=== PATIENT | female | born 1965 | race Caucasian/White ===

== ENCOUNTER → 2018-03-30 13:34 | Outpatient (REF) | payer BC, SELFPAY ==
[2018-03-30 18:48] LABS: Bilirubin Negative (Negative); Blood Small (Negative); Clarity Clear; Glucose Negative (Negative); Ketones Negative (Negative); Leukocyte Esterase Small (Negative); Nitrite Negative (Negative); Urobilinogen 0.2 EU/dL (Up TO 0.2)
[2018-03-30 18:59] LABS: Bacteria Few HPF (Negative); C & S Indicated? Yes; Casts Negative LPF (Negative); Crystals Negative HPF (Negative); Epithelial Cells Few HPF (Negative); Mucus Negative (Negative); Other Cells Few Renal (Negative); RBC 0-2 (0-2); WBC 20-50 HPF (0-5)
== END ==
LOC: NCHCN 13:34
PROVIDERS: PCP Nurse Practitioner Family; Visit Provider Family Medicine
DX: R39.15 Urgency of urination (principal); R10.9 Unspecified abdominal pain
CPT/HCPCS: 87077; 81003; 81015; 87086; 87186

== ENCOUNTER 2018-12-13 09:29 | Outpatient (CLI) | payer BC, SELFPAY ==
[2018-12-13 10:19] LABS: Abs Immature Grans 0.01 k/cumm (0.0-0.09); Absolute Basophil Count 0.01 k/cumm (0.0-0.2); Absolute Eosinophil Count 0.22 k/cumm (0.0-0.7); Absolute Lymphocyte Count 1.41 k/cumm (1.2-3.4); Absolute Monocyte Count 0.53 k/cumm (0.11-0.7); Absolute Neutrophil Count 3.63 k/cumm (1.2-6.7); Basophils % 0.2; Eosinophils % 3.8; HGB 13.3 g/dL (12.0-15.5); Immature Grans % 0.2; Lymphocytes % 24.3; Mean Corp. HGB Concentration 33.3 g/dL (32.0-36.0); Mean Corpuscular Hemoglobin 29.7 pg (27.0-33.0); Mean Corpuscular Volume 89.3 fL (80-95); Mean Platelet Volume 9.8 fL (8.0-11.0); Monocytes % 9.1; Neutrophils % 62.4; Platelet Count 229 x1000/uL (130-400); RBC 4.48 m/cumm (4.00-5.20); RBC Distribution Width 12.8 % (11.7-14.6); White Blood Cell Count 5.81 k/cumm (4.4-10.8)
[2018-12-13 15:48] LABS: Vitamin D 25 Total 16.3 ng/ml (30-100)
[2018-12-13 17:19] LABS: Progesterone <0.2 ng/ml
[2018-12-14 10:14] LABS: FSH 76.5 mIU/ml
[2018-12-15 18:29] LABS: Estradiol, Mass Spectrometry 36 pg/mL; Estrone 41 pg/mL
== END 2018-12-13 09:49 ==
PROVIDERS: PCP Nurse Practitioner Family; Visit Provider Naturopath
DX: R05 Cough (principal); Z78.0 Asymptomatic menopausal state; E55.9 Vitamin D deficiency, unspecified
CPT/HCPCS: 36415; 82306; 82670; 82679; 83001; 83002; 84144; 85025

== ENCOUNTER 2019-07-18 01:20 | Outpatient (CLI) | payer BC, SELFPAY ==
--- NOTE | 2019-07-18 08:49 | DI.MAMMO_ITS ---
EXAM: MG MAMMO SCREENING CLINICAL HISTORY: SCREENING, PREVENTATIVE CARE EXAM, Z00.00 TECHNIQUE: Mammograms were interpreted according to the usual protocol including computer analysis w [employer] CAD system, tomosynthesis and C-view imaging. COMPARISON: January 2018 FINDINGS: The breasts are heterogeneously dense. No dominant mass or clumped microcalcification identified in either breast. Current examination is compared with previous examinations including January 2018 and ere has been no gross interval change in appearance in comparison with previous studies. IMPRESSION: No specific evidence of malignancy at this time. Routine screening examinations are suggested at yea rly intervals in this age group according to the ACS/ACR guidelines. Category 1, breast density categ ory C. BI-RADS Cat 1 - Negative Breast Density - Category C - Heterogeneously dense
== END 2019-07-18 01:40 ==
PROVIDERS: PCP Student in an Organized Health Care Education/Training Program; Visit Provider Nurse Practitioner Family
DX: Z00.00 Encounter for general adult medical examination without abnormal findings (principal); Z12.31 Encounter for screening mammogram for malignant neoplasm of breast
CPT/HCPCS: 77063; 77067

== ENCOUNTER 2020-01-25 03:15 | Outpatient (CLI) | payer BC, SELFPAY ==
[2020-01-25 08:12] LABS: Absolute Basophil Count 0.01 k/cumm (0.0-0.2); Absolute Eosinophil Count 0.18 k/cumm (0.0-0.7); Absolute Lymphocyte Count 1.27 k/cumm (1.2-3.4); Absolute Monocyte Count 0.43 k/cumm (0.11-0.7); Absolute Neutrophil Count 2.46 k/cumm (1.2-6.7); Basophils % 0.2; Eosinophils % 4.1; HCT 41.4 % (36.0-46.0); HGB 14.1 g/dL (12.0-15.5); Lymphocytes % 29.2; Mean Corp. HGB Concentration 34.1 g/dL (32.0-36.0); Mean Corpuscular Hemoglobin 30.2 pg (27.0-33.0); Mean Corpuscular Volume 88.7 fL (80-95); Mean Platelet Volume 9.9 fL (8.0-11.0); Monocytes % 9.9; Neutrophils % 56.6; Platelet Count 214 x1000/uL (130-400); RBC 4.67 m/cumm (4.00-5.20); RBC Distribution Width 12.4 % (11.7-14.6); White Blood Cell Count 4.35 k/cumm (4.4-10.8)
[2020-01-25 08:49] LABS: Hemoglobin A1C 5.6 % (3.8-5.6)
[2020-01-25 09:51] LABS: ALT 128 U/L (14-59); AST 60 U/L (15-37); Alkaline Phosphatase 82 U/L (46-116); Anion Gap 8.8 mmol/L (3-11); BUN 8 mg/dL (7-18); Bilirubin, Total 0.4 mg/dL (0.2-1.0); CO2 26.2 mmol/L (21.0-32.0); CREATININE 0.69 mg/dL (0.55-1.02); Calculated LDL 136 mg/dL (<100); Chloride 108 mmol/L (98-107); Cholesterol 206 mg/dL (<200); Ferritin 129 ng/mL (8-252); Glucose 98 mg/dL (74-106); HDL Cholesterol 48 mg/dL (40-60); Magnesium 2.1 mg/dL (1.8-2.4); Potassium 4.3 mmol/L (3.5-5.1); Sodium 143 mmol/L (136-145); TSH 1.46 uIU/mL (0.36-3.74); Total Protein 6.9 g/dL (6.4-8.2); Triglyceride 113 mg/dL (<150)
[2020-01-25 09:55] LABS: Folate > 20.0 ng/mL (8.6-20.0); Vitamin B12 820 pg/mL (193-986)
[2020-01-25 10:12] LABS: FREE T4 1.11 ng/dL (0.76-1.46)
[2020-01-25 16:29] LABS: T3,Free 3.7 pg/mL (2.8-5.3)
[2020-01-25 16:43] LABS: T3, Total 131 ng/dL (97-169)
[2020-01-25 17:38] LABS: Progesterone 0.3 ng/mL (See Table)
[2020-01-28 06:27] LABS: Vitamin D 25 Total 61.3 ng/ml (30-100)
[2020-01-28 11:10] LABS: FSH 107.3 mIU/mL (See Note)
[2020-01-28 11:37] LABS: LH 32.1 mIU/mL (See Note)
[2020-01-28 12:09] LABS: Homocysteine 10.3 umol/L (5.0-13.9)
[2020-01-29 08:23] LABS: 25-Hydroxy D Total 69 ng/mL; 25-Hydroxy D2 <4.0 ng/mL; 25-Hydroxy D3 69 ng/mL
[2020-01-29 13:29] LABS: Estradiol, Mass Spectrometry <10 pg/mL; Estrone 28 pg/mL
== END 2020-01-25 03:35 ==
PROVIDERS: PCP Student in an Organized Health Care Education/Training Program; Visit Provider Naturopath
DX: R73.01 Impaired fasting glucose (principal); R53.83 Other fatigue; F41.9 Anxiety disorder, unspecified; E78.5 Hyperlipidemia, unspecified; E55.9 Vitamin D deficiency, unspecified; N92.6 Irregular menstruation, unspecified
CPT/HCPCS: 36415; 80053; 80061; 82306; 83090; 83519; 82607; 82670; 82679; 82728; 82746; 83001; 83002; 83036; 83735; 84144; 84439; 84443; 84480; 84481; 85025

== ENCOUNTER 2020-02-07 14:41 | Outpatient (CLI) | payer BC, SELFPAY ==
[2020-02-07 17:57] LABS: ALT 132 U/L (14-59); AST 49 U/L (15-37); Albumin 3.8 g/dL (3.4-5.0); Alkaline Phosphatase 133 U/L (46-116); Bilirubin, Direct 0.11 mg/dL (0.00-0.20); Bilirubin, Total 0.3 mg/dL (0.2-1.0); Total Protein 6.7 g/dL (6.4-8.2)
== END 2020-02-07 15:01 ==
PROVIDERS: PCP Student in an Organized Health Care Education/Training Program; Visit Provider Naturopath
DX: R74.8 Abnormal levels of other serum enzymes (principal)
CPT/HCPCS: 36415; 80076

== ENCOUNTER 2020-02-13 01:41 | Outpatient (CLI) | payer BC, SELFPAY ==
--- NOTE | 2020-02-13 | DI.US_ITS ---
EXAM: US ABDOMEN INDICATION: ABNL LFT'S,R94.5,? LIVER DISEASE COMPARISON: No exams were available for comparison TECHNIQUE: Ultrasound abdomen performed using standard protocol FINDINGS: Abdominal ultrasound was performed according to the usual protocol. The liver is normal in size and shape. No focal hepatic lesion seen. There is no evidence of cholelithiasis or biliary dilatation. No gallbladder wall thickening or peric holecystic fluid collection. Pancreas appears intact as visualized. Spleen is unremarkable in appearance with no focal lesion. Kidneys are normal in size and shape. No renal mass, hydronephrosis, or nephrolithiasis. Abdominal aorta and IVC are of normal diameter. IMPRESSION: Negative abdominal ultrasound .
== END 2020-02-13 02:01 ==
PROVIDERS: PCP Nurse Practitioner Family; Visit Provider Naturopath
DX: R94.5 Abnormal results of liver function studies (principal)
CPT/HCPCS: 76700

== ENCOUNTER 2020-02-13 02:38 | Outpatient (CLI) | payer BC, SELFPAY ==
[2020-02-13 16:52] LABS: Alkaline Phosphatase 146 U/L (46-116); Amylase 48 U/L (25-115); Lipase 139 U/L (73-393)
[2020-02-14 10:14] LABS: Hepatitis A Antibody IgM Negative (Negative); Hepatitis B Core Antibody Negative (Negative); Hepatitis B surface Ag Negative (Negative); Hepatitis C Ab w Rflx HCV PCR Negative (Negative)
== END 2020-02-13 02:58 ==
PROVIDERS: PCP Nurse Practitioner Family; Visit Provider Naturopath
DX: R94.5 Abnormal results of liver function studies (principal)
CPT/HCPCS: 36415; 83690; 86704; 86709; 86803; 87340; 82150; 84075

== ENCOUNTER 2020-03-31 02:41 | Outpatient (CLI) | payer BC, SELFPAY ==
[2020-03-31 09:26] LABS: Abs Immature Grans 0.02 10^3/uL (0.0-0.06); Absolute Basophil Count 0.02 10^3/uL (0.0-0.2); Absolute Eosinophil Count 0.17 10^3/uL (0.0-0.7); Absolute Lymphocyte Count 1.36 10^3/uL (1.2-3.4); Absolute Monocyte Count 0.39 10^3/uL (0.1-0.8); Absolute Neutrophil Count 3.29 10^3/uL (1.2-6.7); Basophils % 0.4; Eosinophils % 3.2; HCT 42.2 % (36.0-46.0); HGB 13.9 g/dL (11.2-15.7); Immature Grans % 0.4; Lymphocytes % 25.9; MCH 29.5 pg (27.0-33.0); MCHC 32.9 % (32.0-36.0); MCV 89.6 fL (80-95); MPV 9.9 fL (8.0-11.0); Monocytes % 7.4; Neutrophils % 62.7; Nucleated RBC 0 %; Platelet Count 230 10^3/uL (130-400); RBC 4.71 10^6/uL (3.93-5.22); RDW 12.6 % (11.7-14.6); RDW-SD 41.5 fL; WBC 5.25 10^3/uL (4.4-10.8)
[2020-03-31 09:28] LABS: Prothrombin Time 9.9 sec (9.3-11.0)
[2020-03-31 10:17] LABS: GGT 88 U/L (5-55)
[2020-03-31 10:27] LABS: ALT 51 U/L (14-59); AST 23 U/L (15-37); Albumin 3.8 g/dL (3.4-5.0); Alkaline Phosphatase 67 U/L (46-116); Anion Gap 9.3 mmol/L (3-11); BUN 14 mg/dL (7-18); Bilirubin, Total 0.4 mg/dL (0.2-1.0); CO2 28.7 mmol/L (21.0-32.0); CREATININE 0.75 mg/dL (0.55-1.02); Calcium 9.3 mg/dL (8.5-10.1); Chloride 108 mmol/L (98-107); Glucose 99 mg/dL (74-106); Potassium 4.3 mmol/L (3.5-5.1); Sodium 146 mmol/L (136-145); Total Protein 6.6 g/dL (6.4-8.2)
[2020-03-31 10:30] LABS: LDH 138 U/L (81-234)
[2020-04-01 09:18] LABS: IgA 169 mg/dL (85-499); IgG 647 mg/dL (610-1,616); IgM 120 mg/dL (35-242)
[2020-04-01 14:39] LABS: ANA Interpretation Negative (Negative)
[2020-04-01 16:28] LABS: Ceruloplasmin 25.6 mg/dL
[2020-04-01 22:23] LABS: Tissue Transglutaminase Ab IgA <1.2 U/mL
[2020-04-01 22:49] LABS: Mitochondrial Ab, M2 <0.1 U
[2020-04-02 10:18] LABS: AFP Tumor Marker 6.9 ng/mL (<8.1)
[2020-04-02 12:42] LABS: Smooth Muscle Ab Screen Negative (Negative)
[2020-04-03 16:31] LABS: Alpha-1-Antitrypsin 109 mg/dL (100 - 190); Alpha-1-Antitrypsin Phenotype MS bands
== END 2020-03-31 03:01 ==
PROVIDERS: Family Provider Naturopath; PCP Naturopath; Visit Provider Physician Assistant Medical
DX: R74.8 Abnormal levels of other serum enzymes (principal); R94.5 Abnormal results of liver function studies
CPT/HCPCS: 36415; 80053; 82390; 82784; 83516; 82103; 82104; 82105; 82977; 83615; 85025; 85610; 86038; 86255

== ENCOUNTER 2020-10-27 11:50 | Outpatient (REF) | payer BC, SELFPAY ==
[2020-10-28 14:11] LABS: COVID-19 RT-PCR UVMMC Result Negative (Negative)
== END 2020-10-27 11:51 | disposition home or self-care (01) ==
LOC: NCHCN 11:50
PROVIDERS: PCP Naturopath; Visit Provider Nurse Practitioner Family
DX: Z20.822 Contact with and (suspected) exposure to COVID-19 (principal); J06.9 Acute upper respiratory infection, unspecified
CPT/HCPCS: U0003

== ENCOUNTER 2021-04-01 08:24 | Outpatient (REF) | payer BC, MEDICAID, SELFPAY ==
[2021-04-01 21:02] LABS: HGB 14.2 g/dL (11.2-15.7); MCH 29.8 pg (27.0-33.0); MCV 90.1 fL (80-95); MPV 10.5 fL (8.0-11.0); Platelet Count 230 10^3/uL (130-400); RBC 4.77 10^6/uL (3.93-5.22); RDW 11.9 % (11.7-14.6); RDW-SD 39.5 fL; WBC 5.09 10^3/uL (4.4-10.8)
[2021-04-01 21:32] LABS: ALT 36 U/L (14-59); AST 22 U/L (15-37); Alkaline Phosphatase 60 U/L (46-116); Bilirubin, Total 0.4 mg/dL (0.2-1.0); Calculated LDL 167 mg/dL (<100); Cholesterol 253 mg/dL (<200); Glucose 107 mg/dL (74-106); HDL Cholesterol 54 mg/dL (40-60); Total Protein 6.9 g/dL (6.4-8.2); Triglyceride 162 mg/dL (<150)
[2021-04-01 21:52] LABS: Bilirubin, Direct 0.1 mg/dL (0.0-0.2)
== END 2021-04-01 08:25 | disposition home or self-care (01) ==
LOC: NCHCN 08:24
PROVIDERS: PCP Naturopath; Visit Provider Nurse Practitioner Family
DX: Z00.00 Encounter for general adult medical examination without abnormal findings (principal); R79.89 Other specified abnormal findings of blood chemistry; Z13.220 Encounter for screening for lipoid disorders
CPT/HCPCS: 80061; 80076; 82947; 85027

== ENCOUNTER 2021-04-29 15:38 | Outpatient (REF) | payer MEDICAID, SELFPAY ==
--- NOTE | 2021-04-29 15:00 | ENDOMET_PTH ---
PATIENT: Hollie Zaldivar LOC: [facility] U#:[id number] AGE/SX: 55/F ROOM: RE04/29/[address]: Deborah Becerra : 1965 BED: DIS: 04/29/2021 SPEC #: [id number] RECD: 04/29/21 18:24 STATUS: QUENTIN REQ #: [id number] PADMINI: 04/29/21 15:[address]: Deborah Becerra DEPT: Surgical Specimen RECD BY: Lexus Connor ENTERED: 04/29/21 18:25 SP TYPE: Endomet OTHR DR: Denia Fsoter Tissues: 1 - ENDOMETRIUM BX/BELLA Procedures: GROSS AND MICRO LEVEL 4 Comments: [id number]
== END 2021-04-29 15:39 | disposition home or self-care (01) ==
LOC: LBN 15:38
PROVIDERS: PCP Naturopath; Visit Provider Obstetrics & Gynecology Gynecology
DX: N84.0 Polyp of corpus uteri (principal); N85.8 Other specified noninflammatory disorders of uterus; N92.4 Excessive bleeding in the premenopausal period
CPT/HCPCS: 88305

== ENCOUNTER 2021-09-18 01:39 | Outpatient (CLI) | payer MEDICAID, SELFPAY ==
--- NOTE | 2021-09-18 14:47 | DI.MAMMO_ITS ---
Exam(s) MAMMO SCREENING EXAM: MAMMO SCREENING CLINICAL HISTORY: SCREENING FOR BREAST CANCER Z12.39 TECHNIQUE: Bilateral full field digital CC and MLO mammographic images were obtained with 3D tomosyn thesis and utilizing computer aided detection (CAD). COMPARISON: Available for comparison. FINDINGS: Masses/Architectural Distortion: None seen. Microcalcifications: No suspicious pleomorphic-type are seen. Skin Thickening/Nipple Retraction: None. IMPRESSION: 1. No significant interval change with no specific features of malignancy noted. 2. Unless there is more urgent need, screening mammography is recommended, as per [employer] guidelines. BI-RADS Category 1 - Negative Breast Density - Category C - Heterogeneously dense Breast density category C or D implies that the patient has dense breast tissue. Dense breast tissue is very common and is not abnormal but dense breast tissue can make it harder to find cancer on a ma mmogram. Also, dense breast tissue may increase their breast cancer risk. This information about the result of the mammogram report was provided to the patient to raise their awareness. Use this report when you speak with the patient about their risks for breast cancer, which includes their family hist ory. At that time, you may recommend for more screening tests (Ultrasound or MRI) as they might be us eful based on their risk. A negative radiographic report should not delay biopsy if a dominant or clinically suspicious mass is present. Up to ten percent of cancers are not identified on mammography. A negative report may reinforce clinical impression. Adenosis and dense breasts may obscure an underlying neoplasm. False positive reports average 6 to 10%. Patient will receive a letter notifying them of these results.
== END 2021-09-18 01:59 ==
PROVIDERS: PCP Nurse Practitioner Family; Visit Provider Nurse Practitioner Family
DX: Z12.31 Encounter for screening mammogram for malignant neoplasm of breast (principal)
CPT/HCPCS: 77063; 77067

== ENCOUNTER 2022-01-08 07:03 | Day surgery (SDC) | payer MEDICAID, SELFPAY ==
--- NOTE | 2022-01-07 12:01 | W.COLOREPORT ---
Colonoscopy Report Date of procedure: 01/08/22 Pre-op diagnosis general: crc screening Post-op diagnosis procedure note: other (polyp) Surgeon: Laverne De Anesthesia Type: General:No Airway Estimated blood loss (mL): 0 Pathology: other Complications: None Disposition: same day Prep: Miralax/Dulcolax Retraction Time: 8 Procedure Description: After informed consent was obtained the patient was taken to the procedure room and placed in a left decubitous position. Monitors were applied and a time out was done. The patients name, date of , procedure, allergies to medications and metal in their body was reviewed. The patient was then sedated. Once sedated and comfortable a rectal exam was done. External exam was normal. Internal exam revealed a normal sphincter tone and no palpable masses. The scope was then introduced and retrofelexed. No internal hemorrhoids were identified. The scope was then advanced to the cecum w/out difficulty. The TI and appendiceal orifice were identified. The prep was the BPS 3 in all segments for a total of 9. The scope was then slowly retracted over 8 minutes back into the rectum. There are no AVMs or diverticula. She has a flat 5 mm polyp at 20 cm. This is removed with a cold forcep. All specimen is retrieved and no bleeding is noted. The scope was removed and the patient was woken up and taken back to Same day surgery in stable condition. The patient tolerated the procedure well and there were no immediate complications. Follow up: The patient should follow up, 7 yrs, path pd, years unless they develop changes in bowel habits or other new gastrointestinal complaints.
--- NOTE | 2022-01-07 12:02 | W.PM.DSUDISC ---
Discharge Plan Disposition Patient Disposition: HOME Condition: Good Discharge Details Reason For Visit: colon scope Attending Provider: Laverne De Primary Care Provider: Joann Rubio Home Meds and New Rx's Prescriptions: Continued ibuprofen 800 MG tablet 800 mg PO TID calcium carbonate-vitamin D3 1 EACH tablet 1 ea PO DAILY cholecalciferol (vitamin D3) [Vitamin D3] 1,000 UNIT capsule 1,000 unit PO DAILY Discontinued bisacodyl [Dulcolax (bisacodyl)] 5 mg tablet,delayed release (DR/EC) 5 mg PO ONCE Qty: 4 0RF Rx Instructions: Take according to provider's instructions for colonoscopy prep. polyethylene glycol 3350 17 gram/dose powder 17 g PO ONCE Qty: 238 0RF Rx Instructions: To be taken as directed by prescriber's office for colonoscopy prep. Discharge Instructions Additional Instructions: DSU Colonoscopy Post-Op Instructions Instructions for Everyone who is given Anesthesia: For your safety, please do the following for the next twenty-four (24) hours: *Do Not operate a motor vehicle (car, truck, motorcycle, etc.) *Do Not drink alcoholic beverages or use any recreational drugs for the first 24 hours or while taking pain medications. The medications in your body may have a reaction that can be dangerous. *Do Not make any important decisions or sign any important papers. Findings: Very small polyp that will probably be benign. Follow up: My office will send a letter in 2 to 3 weeks time, detailing as to what type of polyp it was, and when we want you to repeat your colonoscopy, most likely 10 years time. 1. , detailing as to what type of polyp it was and when we want you to repeat your colonoscopy age, I lifting over 20 pounds or strenuous activity for the first 24 hours after your procedure. After 24 hours there are no restrictions on your activity but you may feel fatigued for a few days. 2. After you arrive home you may have a light meal and return to your normal diet as you can tolerate it without feeling sick to your stomach. 3. You may have a bloated, gaseous feeling in your belly (abdomen) after a colonoscopy. Passing gas and belching will help. Walking or lying down on your left side with your knees flexed may relieve the discomfort. Call the office at [phone] (Office) or [phone] ([facility]) right away if you notice any of the following: a.Vomiting of blood or ?coffee ground stools?. b.Rectal bleeding 1Tbsp, blood clots or continuous bleeding. c.Severe belly (abdominal) pain. d.A hard distended belly (abdomen) and an inability to pass gas. 4. Please don?t expect to have a normal BM (bowel movement) for 2-3 days after your procedure. 5. If there are questions regarding the findings of your procedure, please contact your doctor 6. If you are unable to contact your doctor with a problem, contact the hospital at [phone]. 7. Continue all your regular medications unless directed otherwise. I understand the above instructions and have no questions. Signature of Patient or Adult Escort Name of Responsible Adult Escort Signature of Nurse Date/Time Activity:: see above Diet:: see above Discharge Orders Discharge Orders: Discharge Order (Routine); Ordered 01/07/22 Ordered By: Laverne De
[2022-01-08 07:17] VITALS: BP 128/67; PULSE 63; RESP 20; TEMP 36.4; O2SAT 97
[2022-01-08] MEDS: Lactated Ringers 1,000 ML 80 ML IV (07:34)
--- NOTE | 2022-01-08 08:03 | W.ANESPRE ---
General Info Date of Service Date Performed: 01/08/22 Height: 5 ft 2.6 in Weight: 79.2 kg Body Mass Index (BMI): 31.3 Surgical Procedure: Operation Date: 01/08/22 08:35 Proposed Procedure Side Surgeon deny De, Meds Allergies and Home Medications Allergies Allergy/AdvReac Type Severity Reaction Status Date / Time No Known Allergies Allergy Unverified 01/08/22 07:25 Home Medication Medication Instructions Recorded calcium carbonate 600 mg-vitamin 1 ea PO DAILY 01/27/18 D3 5 mcg (200 unit) tablet cholecalciferol (vitamin D3) 25 1,000 unit PO DAILY 01/27/18 mcg (1,000 unit) capsule (Vitamin D3) ibuprofen 800 mg tablet 800 mg PO TID 01/27/18 Current Visit Medications: Current Medications Generic Name Dose Route Start Last Admin Trade Name Freq PRN Reason Stop Dose Admin Hyoscyamine Sulfate 0.125 mg 01/07/22 12:00 Hyoscyamine 0.125 Mg Sl/Oral/Chew SL DIRECTED PRN Ringer's Solution 1,000 mls @ 80 mls/hr 01/08/22 06:00 01/08/22 07:34 IV 02/06/22 23:59 80 mls/hr INFUSION BRANDY Administration IV Miscellaneous Supplies 1 each 01/08/22 06:00 Iv Access IV 02/06/22 23:59 DIRECTED BRANDY Ondansetron HCl 4 mg 01/07/22 12:00 Ondansetron 4 Mg/2 Ml Vial IVP Q4H PRN PRN Nausea / Vomiting Sodium Chloride 0 ml 01/08/22 06:00 Normal Saline Flush 10 Ml Syr IV 02/06/22 23:59 PRN PRN Sodium Chloride 0 ml 01/08/22 06:00 Normal Saline 10 Ml Vial IJ 02/06/22 23:59 DIRECTED PRN Sterile Water 0 ml 01/08/22 06:00 Water,Injection,Sterile 10 Ml Vial IJ 02/06/22 23:59 DIRECTED PRN PFSH Active Problems Active Problems: Problem Status Onset Code Multiple sclerosis Obesity Screening for colon cancer Z12.11 Medical History Medical History ADHD Asthma Bacterial vaginosis Dysuria Edema, lower extremity Hematuria Hyperlipidemia Postmenopausal bleeding Rheumatoid factor positive Urinary, incontinence, stress female Vasomotor symptoms due to menopause Vitamin D deficiency Surgical History Surgical History (Updated 01/08/22 @ 07:24 by Saundra Christianson RN) Hx of colonoscopy Hx of knee surgery R knee mcl/acl repair Tobacco Smoking/Tobacco Use Status: Former Tobacco Use Alcohol Alcohol Intake: current Alcohol intake frequency: a few times a week Alcohol type: beer, wine and hard liquor Substance Use Substance use: Never Substance use type: does not use Vital Signs and Lab Results Vital Signs Most Recent Vital Signs in EMR: Most Recent Vital Signs Temp Pulse Resp BP Pulse Ox 36.4 C L 63 20 128/67 97 01/08/22 07:17 01/08/22 07:17 01/08/22 07:17 01/08/22 07:17 01/08/22 07:17 Lab Results Blood Type / Crossmatch: No Data to Display Complete Blood Count: No Data to Display Complete Metabolic Panel: No Data to Display Liver Function Panel: No Data to Display Coagulation Panel: No Data to Display Cardiac Panel: No Data to Display Arterial Blood Gas: No Data to Display Venous Blood Gas: No Data to Display Pancreas Panel: No Data to Display Thyroid Panel: No Data to Display Infectious Disease: No Data to Display Blood Cultures: No Data to Display Toxicology Panel: No Data to Display Panel: No Data to Display Anesthesia Assessment and Plan Anesthesia History Personal History: No History of Anesthesia Complications Family History: No Family History of Anesthesia Complications Exercise Tolerance Exercise Tolerance: Metabolic Equivalents>4 Pertinent Negatives Pertinent Negatives: No Symptoms of GERD, No Major Cardiovascular Symptoms or Complaints and No Major Pulmonary Symptoms or Complaints Cardiac & Pulmonary Exam Cardiac Exam: Normal S1/S2 Heart Sounds Pulmonary Exam: Clear Bilateral Breath Sounds Implantable Cardiac Device Does patient have a Pacemaker or an ICD?: No Airway Exam Known Difficult Airway: No Mallampati Class: 2 Mouth Opening: Normal (> 3cm) Thyromental Distance: Greater than 3 cm Neck Range of Motion: Full ROM Neck Circumference: Normal Teeth Condition: Normal Dentition ASA Classification ASA Score: ASA 2 Emergency Case?: No NPO Status NPO Status: NPO Clears >2 hours, Solids >8 hours Status Status: Not Relevant due to Medical History Anesthesia Plan Resuscitation Status: Full Code Anesthesia Technique: General Anesthesia Airway Planned: Natural Airway Monitors Used: Standard Monitors
[2022-01-08 08:05] VITALS: BMI 31.3
--- NOTE | 2022-01-08 08:30 | BOWEL_PTH ---
PATIENT: Hollie Zaldivar LOC: [facility] U#:[id number] AGE/SX: 56/F ROOM: RE01/08/[address]: Laverne De : 1965 BED: DIS: 01/08/2022 SPEC #: [id number] RECD: 01/08/22 12:24 STATUS: QUENTIN REQ #: [id number] PADMINI: 01/08/22 08:[address]: Laverne De DEPT: Surgical Specimen RECD BY: Lexus Connor ENTERED: 01/08/22 12:24 SP TYPE: Bowel OTHR DR: Joann Rubio Tissues: 1 - BIOPSY BOWEL Procedures: GROSS AND MICRO LEVEL 4 Comments: [id number]
[2022-01-08 08:43] VITALS: BP 96/59; PULSE 66; RESP 18; TEMP 36.4; O2SAT 98
--- NOTE | 2022-01-08 09:08 | W.ANESPOSTOP ---
Postoperative Evaluation Date, Time and Location Date Performed: 01/08/22 Time Performed: 09:08 Patient Location: Day Surgery Unit Vital Signs Most Recent Imported Vital Signs: Most Recent Vital Signs Temp Pulse Resp BP Pulse Ox 36.4 C L 66 18 96/59 L 98 01/08/22 08:43 01/08/22 08:43 01/08/22 08:43 01/08/22 08:43 01/08/22 08:43 Most Recent Manually Entered Vital Signs: Adult Blood Pressure: 96/59 Heart Rate: 57 Respirations: 10 Oxygen Saturation (%): 99 Temperature (C): 36.4 C Pain Score (0-10 Scale): 0 Pain Score Most Recent Pain Score: Most Recent Pain Score Pain Level 0 01/08/22 08:43 Assessment Mental Status: Awake (Alert & Oriented to Patient Baseline) Airway and Respiratory Function: Patent airway with normal (patient baseline) respiratory exam Cardiovascular Function: Hemodynamically Stable Hydration Status: Adequately Hydrated Nausea & Vomiting: No Nausea or Vomiting Pain: Pt. Denies Any Pain Peripheral Nerve Block: Patient did not receive a nerve block
[2022-01-08 09:09] VITALS: BP 96/58; BP 96/59; PULSE 57; PULSE 58; RESP 10; RESP 16; TEMP 36.5; TEMPC 36.4; O2SAT 99
== END 2022-01-08 09:46 | disposition home or self-care (01) ==
PROVIDERS: PCP Nurse Practitioner Family; Visit Provider Surgery
PROC: 0DJD8ZZ Inspection of Lower Intestinal Tract, Via Natural or Artificial Opening Endoscopic (ICD-10-PCS; CPT 45378; principal; 2022-01-08 08:30)
DX: Z12.11 Encounter for screening for malignant neoplasm of colon (principal); E55.9 Vitamin D deficiency, unspecified; J45.909 Unspecified asthma, uncomplicated; K63.5 Polyp of colon
CPT/HCPCS: 45380; 88305

== ENCOUNTER 2023-03-24 19:23 | Outpatient (REF) | payer MEDICAID, SELFPAY | END 2023-03-24 19:24 | disposition home or self-care (01) | LOC: NCHCN 19:23 | PROVIDERS: PCP Nurse Practitioner Family; Visit Provider Physician Assistant Medical | DX: J02.9 Acute pharyngitis, unspecified (principal) | CPT/HCPCS: 87070 ==

== ENCOUNTER 2023-04-18 16:50 | Outpatient (REF) | payer MEDICAID, SELFPAY ==
--- NOTE | 2023-04-18 16:15 | PAPFT_PTH ---
PATIENT: Hollie Zaldivar LOC: [facility]#:[id number] AGE/SX: 57/F ROOM: RE04/18/[address]: Joann Rubio : 1965 BED: DIS: 04/18/2023 SPEC #: [id number] RECD: 04/18/23 18:35 STATUS: QUENTIN REQ #: [id number] PADMINI: 04/18/23 16:[address]: Joann Rubio DEPT: [facility] Cytology RECD BY: Lexus Connor Tissues: 1 - CX/ENDOCX FOR PAP SMEARS Procedures: PAP THIN PREP/[facility] Screening HPV DNA PROBE Comments: [id number]
[2023-04-18 20:31] LABS: BUN 23 mg/dL (7-18); CREATININE 0.8 mg/dL (0.55-1.02); Chloride 105 mmol/L (98-107); Estimated GFR 86.96 (mL/min/1.73m2); Glucose 116 mg/dL (74-106); Potassium 4.1 mmol/L (3.5-5.1); Sodium 139 mmol/L (136-145)
== END 2023-04-18 16:51 | disposition home or self-care (01) ==
LOC: NCHCN 16:50
PROVIDERS: PCP Nurse Practitioner Family; Visit Provider Nurse Practitioner Family
DX: Z00.00 Encounter for general adult medical examination without abnormal findings (principal); Z12.4 Encounter for screening for malignant neoplasm of cervix; Z11.51 Encounter for screening for human papillomavirus (HPV)
CPT/HCPCS: 80048; 88142; 87624

== ENCOUNTER 2023-05-09 13:40 | Outpatient (REF) | payer MEDICAID, SELFPAY ==
[2023-05-09 16:42] LABS: Calculated LDL 189 mg/dL (<100); Cholesterol 267 mg/dL (<200); Glucose 104 mg/dL (74-106); HDL Cholesterol 54 mg/dL (40-60); Triglyceride 124 mg/dL (<150)
== END 2023-05-09 13:41 | disposition home or self-care (01) ==
LOC: NCHCN 13:40
PROVIDERS: PCP Nurse Practitioner Family; Visit Provider Nurse Practitioner Family
DX: Z13.220 Encounter for screening for lipoid disorders (principal); Z13.1 Encounter for screening for diabetes mellitus; Z00.00 Encounter for general adult medical examination without abnormal findings
CPT/HCPCS: 80061; 82947

== ENCOUNTER 2023-05-25 16:39 | Outpatient (REF) | payer MEDICAID, SELFPAY ==
[2023-05-25 20:16] LABS: Bacteria Rare HPF (Negative); Crystals Negative HPF (Negative); Epithelial Cells Many HPF (Negative); Mucus Trace (Negative); RBC 0-2 HPF (0-2)
[2023-05-25 20:17] LABS: C & S Indicated? C&S Done As Ordered
== END 2023-05-25 16:40 | disposition home or self-care (01) ==
LOC: NCHCN 16:39
PROVIDERS: PCP Nurse Practitioner Family; Visit Provider Nurse Practitioner Family
DX: N32.81 Overactive bladder (principal); E66.9 Obesity, unspecified; N39.3 Stress incontinence (female) (male); Z68.30 Body mass index [BMI] 30.0-30.9, adult
CPT/HCPCS: 81015; 87086

== ENCOUNTER 2023-06-15 11:37 | Outpatient (REF) | payer MEDICAID, SELFPAY ==
[2023-06-16 09:23] LABS: Hepatitis B Surface Ag Negative (Negative)
[2023-06-16 10:03] LABS: Syphilis Serology (RPR) Negative (Negative)
[2023-06-16 10:07] LABS: HIV-1/2 Ag & Ab Screen Negative (Negative)
[2023-06-16 10:40] LABS: Hepatitis C Ab w Rflx HCV PCR Negative (Negative)
[2023-06-16 12:58] LABS: Chlamydia Result Negative (Negative); GC Result Negative (Negative)
[2023-06-16 13:34] LABS: Chlamydia Result Negative (Negative); GC Result Negative (Negative)
== END 2023-06-15 11:38 | disposition home or self-care (01) ==
LOC: NCHCN 11:37
PROVIDERS: PCP Nurse Practitioner Family; Visit Provider Nurse Practitioner Family
DX: Z11.3 Encounter for screening for infections with a predominantly sexual mode of transmission (principal); Z11.4 Encounter for screening for human immunodeficiency virus [HIV]; Z11.59 Encounter for screening for other viral diseases; Z00.00 Encounter for general adult medical examination without abnormal findings
CPT/HCPCS: 86803; 87340; 87389; 87491; 87591; 86592; 87480; 87510; 87660

== ENCOUNTER 2023-07-11 18:07 | Outpatient (REF) | payer MEDICAID, SELFPAY ==
[2023-07-13 10:24] LABS: Syphilis Serology (RPR) Negative (Negative)
[2023-07-13 13:11] LABS: Chlamydia Result Negative (Negative); GC Result Negative (Negative)
== END 2023-07-11 18:08 | disposition home or self-care (01) ==
LOC: NCHCN 18:07
PROVIDERS: PCP Nurse Practitioner Family; Visit Provider Nurse Practitioner Family
DX: Z11.3 Encounter for screening for infections with a predominantly sexual mode of transmission (principal)
CPT/HCPCS: 87491; 87591; 86592

== ENCOUNTER 2023-08-08 11:35 | Outpatient (REF) | payer MEDICAID, SELFPAY ==
[2023-08-09 10:11] LABS: Hepatitis C Ab w Rflx HCV PCR Negative (Negative)
[2023-08-09 10:17] LABS: HIV-1/2 Ag & Ab Screen Negative (Negative)
== END 2023-08-08 11:36 | disposition home or self-care (01) ==
LOC: NCHCN 11:35
PROVIDERS: PCP Nurse Practitioner Family; Visit Provider Nurse Practitioner Family
DX: Z11.4 Encounter for screening for human immunodeficiency virus [HIV] (principal); Z11.59 Encounter for screening for other viral diseases; Z00.00 Encounter for general adult medical examination without abnormal findings
CPT/HCPCS: 86803; 87389

== ENCOUNTER 2024-03-07 08:21 | Outpatient (CLI) | payer MEDICAID, SELFPAY ==
[2024-03-07 08:48] LABS: Abs Immature Grans 0.01 10^3/uL (0.0-0.06); Absolute Basophil Count 0.02 10^3/uL (0.0-0.2); Absolute Eosinophil Count 0.15 10^3/uL (0.0-0.7); Absolute Lymphocyte Count 1.45 10^3/uL (1.2-3.4); Absolute Monocyte Count 0.32 10^3/uL (0.1-0.8); Absolute Neutrophil Count 3.21 10^3/uL (1.2-6.7); Basophils % 0.4 %; Eosinophils % 2.9 %; HCT 42.1 % (36.0-46.0); HGB 14.1 g/dL (11.2-15.7); Immature Grans % 0.2 %; Lymphocytes % 28.1 %; MCH 29.6 pg (27.0-33.0); MCHC 33.5 % (32.0-36.0); MCV 88 fL (80-95); MPV 9.1 fL (8.0-11.0); Monocytes % 6.2 %; Neutrophils % 62.2 %; Platelet Count 247 10^3/uL (130-400); RBC 4.76 10^6/uL (3.93-5.22); WBC 5.16 10^3/uL (4.4-10.8)
[2024-03-07 09:23] LABS: Hemoglobin A1C 5.6 % (<5.7)
[2024-03-07 09:29] LABS: ALT 48 U/L (14-59); AST 20 U/L (15-37); Albumin 3.9 g/dL (3.4-5.0); Alkaline Phosphatase 82 U/L (46-116); Anion Gap 8.8 mmol/L (3-11); BUN 14 mg/dL (7-18); Bilirubin, Total 0.42 mg/dL (0.2-1.0); CO2 26.2 mmol/L (21.0-32.0); CREATININE 0.7 mg/dL (0.55-1.02); Calcium 9.1 mg/dL (8.5-10.1); Calculated LDL 188 mg/dL (<100); Chloride 105 mmol/L (98-107); Cholesterol 272 mg/dL (<200); Estimated GFR 101.44 (mL/min/1.73m2); Glucose 108 mg/dL (74-106); HDL Cholesterol 61 mg/dL (40-60); Potassium 4.1 mmol/L (3.5-5.1); Sodium 140 mmol/L (136-145); TSH (W/Ref FT4) 1.04 uIU/mL (0.36-3.74); Total Protein 7.1 g/dL (6.4-8.2); Triglyceride 119 mg/dL (<150); Vitamin B12 306 pg/mL (193-986); Vitamin D 25 Total 28.8 ng/mL (30-100)
[2024-03-07 20:05] LABS: Hepatitis A Antibody IgM Negative (Negative); Hepatitis B Core Antibody Negative (Negative); Hepatitis B surface Ag Negative (Negative); Hepatitis C Ab w Rflx HCV PCR Negative (Negative)
== END 2024-03-07 08:22 | disposition home or self-care (01) ==
LOC: LBO 08:23
PROVIDERS: PCP Nurse Practitioner Family; Visit Provider Nurse Practitioner Family
DX: E03.9 Hypothyroidism, unspecified (principal); E11.9 Type 2 diabetes mellitus without complications; D51.9 Vitamin B12 deficiency anemia, unspecified; D55.9 Anemia due to enzyme disorder, unspecified; Z00.00 Encounter for general adult medical examination without abnormal findings
CPT/HCPCS: 36415; 80053; 80061; 82306; 86704; 86709; 86803; 87340; 82607; 83036; 84443; 85025